=== PATIENT | female | born 1960 | race Caucasian/White ===

== ENCOUNTER 2017-04-02 05:24 | Day surgery (SDC) | payer BC, OTHER ==
[~2017-04-02] VITALS: Ht 167.6 cm; Wt 62.1 kg
--- NOTE | ~2017-04-02 | O ---
[facility] [place] [address] OPERATIVE REPORT Name: LOPEZ KELLER Room #: 150-2 [facility]..#: [id number] Admission: 04/02/17 Attend Phys: Logan Duval MD Discharge: Date of : 64 Report #: [id number] THIS REPORT FOR: //name// CC: Logan Puente DATE OF SERVICE: 04/02/2017 DATE OF PROCEDURE: 04/02/2017. SERVICE: Orthopedics. FACILITY: [facility] SURGEON: Logan Duval MD OLIVE GRADER: None. PREOPERATIVE DIAGNOSIS: Recalcitrant adhesive capsulitis, left shoulder. POSTOPERATIVE DIAGNOSIS: Recalcitrant adhesive capsulitis, left shoulder. PROCEDURES: 1. Manipulation under anesthesia, left shoulder. 2. Intra-articular injection utilizing fluoroscopic guidance, left shoulder. COMPLICATIONS: None. DRAINS: None. SPECIMENS: None. ANESTHESIA TYPE: Indwelling interscalene catheter with general with LMA FINDINGS: Preoperative range of motion was as follows: Forward flexion 50 degrees, external rotation 0 degrees, abduction 30 degrees. Postoperative range of motion was as follows, forward flexion 140 degrees, external rotation 60 degrees, abduction 110 degrees. X-ray confirmed no fracture. HISTORY AND INDICATIONS: The patient is a 56-year-old female with severe case of recalcitrant left shoulder glenohumeral adhesive capsulitis. She also had biceps tendon injury and underwent surgical capsule release with debridement and biceps tenodesis, the tenodesis did well and she initially had good maintenance of her motion, but with time plateaued and then began regress and had increasing [facility] [address] [place] [address] OPERATIVE REPORT Name: LOPEZ KELLER Room #: 150-2 [facility] M.R.#: [id number] Admission: 04/02/17 Attend Phys: Logan Duval MD Discharge: Date of : 64 Report #: [id number] pain and worsening motion. At this point, we decided to move forward with return to the operating room for manipulation under anesthesia with intraarticular corticosteroid injection. The risks, benefits, alternatives and indications for surgery were discussed with her in detail. The risks include but not limited to pain, persistent stiffness, fracture, need to convert to an open procedure, persistence of the pathology as well as complications related to anesthesia such as stroke, heart attack, pulmonary complications, thromboembolic disease and . Despite these risks, she wished to proceed. PROCEDURE IN DETAIL: After left upper extremity was correctly identified in the preoperative holding area as the operative extremity, the patient underwent placement of an indwelling nerve catheter by the anesthesia team. She was then taken to the operating room and placed supine on operating table and general anesthesia with LMA was induced without complication. She was padded appropriately. A time-out procedure was performed. At this point, a gentle manipulation was performed to left shoulder, beginning with forward flexion and moving to direct abduction and external rotation at 0 degrees of abduction and external rotation, 90 degrees of abduction and internal rotation release of soft tissues could be felt. There was no bony crepitus at any point. When range of motion was improved and release was felt to be a maximally achieved, C-arm was brought in and there was confirmation and no fracture had occurred, a 22 gauge needle was then used in a sterile fashion to perform an intraarticular injection, fluoroscopic guidance was used to ensure appropriate trajectory of the needle. A total of 80 mg of Depo-Medrol and 10 mL of 1% lidocaine without epinephrine were infiltrated into the intraarticular space and then a Band-Aid was applied. The patient tolerated procedure well. She was awakened from anesthesia and taken to recovery room in stable condition. No complications and all counts were correct. <ELECTRONICALLY SIGNED> By: Logan Duval MD 04/02/17 1125 [id number] 1100 Logan Duval MD /nt
[~2017-04-02 05:24] MED LIST: BENADRYL25 MG PO; TYLENOL325 MG PO
[2017-04-02 08:00] VITALS: BP 125/74
[2017-04-02 09:58] VITALS: BP 125/74
== END 2017-04-02 10:45 | disposition home or self-care (01) ==
LOC: OR 05:24 → TBA 05:24 → OR 10:09
DX: S46.202D Unspecified injury of muscle, fascia and tendon of other parts of biceps, left arm, subsequent encounter (principal); M75.02 Adhesive capsulitis of left shoulder; X58.XXXD Exposure to other specified factors, subsequent encounter
CPT/HCPCS: 50010; 50101; 62110; 62900; 70005